=== PATIENT | female | born 1980 | race American Indian/Alaskan Native ===

== ENCOUNTER 2019-12-05 09:21 | Inpatient (IN) | payer MEDICAID, OTHER ==
--- NOTE | 2019-11-27 11:22 | History and Physical Report ---
History of Present Illness Date of examination: 11/27/19 Chief complaint: repeat c/s History of present illness: 39 yo at 39w1d c/b AMA, GDM, hx preE on asprin, LGA fetus per APA, prior c/s x 3 presenting for repeat c/s. No labor complaints or PIH symptoms. +FM. Past History Past Medical History: other (gestational diabetes) Past Surgical History: section (x3) Family/Genetic History: other (son with epilepsy) Social history: no significant social history - Obstetrical History : 8 Para: 4 Hx # Term Pregnancies: 4 Spontaneous Abortions: 3 Number of Living Children: 4 Medications and Allergies Allergies Allergy/AdvReac Type Severity Reaction Status Date / Time sea food AdvReac Anaphylaxis Uncoded 11/06/12 18:55 Home Medications Medication Instructions Recorded Confirmed Last Taken Type Ferrous Sulfate [Feosol 325 MG tab] 325 mg PO BID #60 tablet 11/09/12 Unknown Rx HYDROcodone/APAP 5-325 [Bartlett 1 each PO Q6HR PRN #30 tablet 11/09/12 Unknown Rx 5/325 mg] Ibuprofen [Motrin] 600 mg PO Q8H PRN #30 tablet 11/09/12 Unknown Rx Hug296/Iron Fum/Folic/Docusate 1 each PO QDAY #30 tablet 11/09/12 Unknown Rx [ 19 Tablet] Review of Systems All systems: negative (expect HPI) - Physical Exam Abdomen: Positive: normal appearance, normal bowel sounds - Obstetrical FHR: category 1 Uterine Contraction Monitor Mode: External Uterine Contraction Pattern: Absent Results All other labs normal. Assessment and Plan - Patient Problems (1) S/P Status: Acute Plan to address problem: --To OR for repeat c section --Desires future fertility --Questions solicited and answered --Consented in the chart (2) Gestational diabetes Status: Acute Plan to address problem: --Diet controlled --Monitor CBGs per protocol (3) History of pre-eclampsia in prior , currently Status: Acute Plan to address problem: --Monitor for s/sx of pre-E, management as indicated --On aspirin during , d/c'd 24H prior to surgical management
[2019-12-05] MEDS ORDERED: BICITRA ORAL LIQD 30ML PO SCH (10:00)
[2019-12-05] MEDS ORDERED: FAMOTIDINE 20 MG/2 ML INJ IV SCH (10:00)
[2019-12-05] MEDS ORDERED: METOCLOPRAMIDE 10 MG/2 ML INJ IV SCH (10:00)
[2019-12-05] MEDS ORDERED: OXYTOCIN DRIP 30 UNITS/500 ML BAG IV SCH ×2 (10:00→14:00)
[2019-12-05] MEDS: LACTATED RINGERS 1,000 ML IV SCH ×2 (10:25→11:30)
[2019-12-05 10:35] LABS: Basophils % (Auto) 0.2 % (0.0-1.8); Eosinophils # (Auto) 0.1 K/mm3 (0.0-0.4); Eosinophils % (Auto) 0.6 % (0.0-4.3); Hematocrit 37.4 % (30.3-42.9); Hemoglobin 12.2 gm/dl (10.1-14.3); Lymphocytes % (Auto) 20.1 % (13.4-35.0); Mean Corpuscular HGB Conc 33 % (30-34); Mean Corpuscular Volume 87 fl (79-97); Monocytes # (Auto) 0.7 K/mm3 (0.0-0.8); Monocytes % (Auto) 7.3 % (0.0-7.3); Platelet Count 211 K/mm3 (140-440); Red Blood Count 4.31 M/mm3 (3.65-5.03); Red Cell Distribution Width 14.3 % (13.2-15.2)
[2019-12-05] MEDS ORDERED: ceFAZolin/Water 2 GM/20 ML 2 GM/20 ML SYRINGE IV ONE (11:21)
--- NOTE | 2019-12-05 11:39 | Event Note ---
Date: 12/05/19 Patient initially declining blood products during initial c section consent but did not express with products she would accept. When attempting to find list of products, patient express that she would accept blood products to provider obtaining blood consent in emergency situations. Regardless of consent, for due diligence, found list of all available blood products at hospital. red blood cells, agrees cryoprecipitate, agrees platelets, agrees plasma, agrees cell saver, agrees Question and answered witnessed by KHADIJAH Jalloh. tube man Searra also aware. All surgery team aware. In addition, patient declines COVID testing. No reason given. Will presume at PUI. --Partner not allowed to leave and come back to hospital --If in NICU, they are unable to visit --Patient/partner are considered PUIs during hospitalization and anyone providing service will require full contact isolation gear with N95 mask per COVID PUI protocols --Will baby photos are allowed during surgery given risk of contamination/infection, including fomites and respiratory spread. --Patient and partner expressed understanding and continue to decline COVID testing. All involved individuals in patient care made aware.
--- NOTE | 2019-12-05 11:42 | Anesthesia Consultation ---
Anesthesia Consult and Med Hx Date of service: 12/05/19 - Airway Anesthetic Teeth Evaluation: Good ROM Head & Neck: Adequate Mental/Hyoid Distance: Adequate Mallampati Class: Class II Intubation Access Assessment: Probably Good - Pulmonary Exam CTA: Yes - Cardiac Exam Cardiac Exam: RRR - Pre-Operative Health Status ASA Pre-Surgery Classification: ASA3 Proposed Anesthetic Plan: Spinal - Pulmonary Hx Asthma: No COPD: No Hx Pneumonia: No - Cardiovascular System Hx Hypertension: Yes - Central Nervous System Hx Seizures: No Hx Psychiatric Problems: No - Endocrine Hx Renal Disease: No Hx End Stage Renal Disease: No Hx Non-Insulin Dependent Diabetes: Yes Hx Hypothyroidism: No Hx Hyperthyroidism: No - Hematic Hx Anemia: No Hx Sickle Cell Disease: No - Other Systems Hx Alcohol Use: Yes (occas)
--- NOTE | 2019-12-05 11:42 | Anesthesia Day of Surgery ---
Anesthesia Day of Surgery - Day of Surgery Patient Examined: Yes Patient H&P Reviewed: Yes Patient is NPO: Yes
[2019-12-05] MEDS ORDERED: ceFAZolin/STERILE WATER 2 GM/20 ML SYRINGE IV ONE (11:52)
[2019-12-05] MEDS ORDERED: BUPIVACAINE/PF (0.5%) 5 MG/1 ML 30 ML VIAL INFILTRATI ONE (11:55)
[2019-12-05] MEDS ORDERED: ONDANSETRON 4 MG/2 ML INJ ONE (11:55)
[2019-12-05] MEDS ORDERED: KETOROLAC 30 MG/1 ML INJ ONE (11:55)
[2019-12-05] MEDS ORDERED: WATER FOR IRRIG STERILE 1,500 ML BOTTLE IR ONE (12:28)
[2019-12-05] MEDS ORDERED: SODIUM CHLORIDE 0.9% IRR 1,500 ML BOTTLE IR ONE (12:28)
[2019-12-05] MEDS ORDERED: PHENYLEPHRINE/NS 1,000 MCG/10 ML SYRINGE (OR USE) IV ONE ×2 (12:37→12:57)
[2019-12-05] MEDS ORDERED: LACTATED RINGERS 1,000 ML ONE (12:37)
[2019-12-05] MEDS ORDERED: MAGNESIUM HYDROXIDE (MOM) ORAL LIQD UDC PO PRN (13:27)
[2019-12-05] MEDS ORDERED: MORPHINE 4 MG/1 ML INJ IV PRN (13:27)
[2019-12-05] MEDS ORDERED: PROMETHAZINE 25 MG RECT SUPP PR PRN (13:27)
[2019-12-05] MEDS ORDERED: SENNOSIDES 8.6 MG TAB PO PRN (13:27)
[2019-12-05] MEDS ORDERED: LANOLIN/ZINC/DIMETHICONE (LANSINOH) 7 GM TP PRN (13:27)
[2019-12-05] MEDS ORDERED: ONDANSETRON 4 MG/2 ML INJ IV PRN (13:27)
[2019-12-05] MEDS ORDERED: NALOXONE 0.4 MG/1 ML INJ IV PRN (13:27)
[2019-12-05] MEDS ORDERED: HYDROCORTISONE 25 MG RECTAL SUPP PR PRN (13:27)
[2019-12-05] MEDS ORDERED: WITCH HAZEL/ GLYCERIN PAD TP PRN (13:27)
--- NOTE | 2019-12-05 13:27 | Procedure Note ---
OB Delivery Note - Delivery Date of Delivery: 12/05/19 Surgeon: RENATE CHASE JR Estimated blood loss: 1000cc - Section Preop diagnosis: repeat Postop diagnosis: same section procedure: section, repeat low transverse Disposition: PACU Complications: none Narrative: Indication: 39-year-old -0-3-4 at 39 weeks 1 day complicated by gestational hypertension, gestational diabetes on no medications, with a history of prior C- section presenting for scheduled repeat . Findings: Normal uterus, tubes and ovaries. Clear fluid. No nuchal cord. Delivery of male infant at 1236 Weight 4377 grams Height 21.5 inches Apgars 8 9 EBL 1 L Intraoperative IV fluids 1050 cc Urine output 20 cc Procedure: Patient was taken to the operating room prepped and draped in the usual sterile fashion. Pfannenstiel skin incision was made and carried down to the underlying fascia. Fascia was incised and the incision was distended bilaterally. Rectus fascia was dissected off the rectus muscle superiorly and inferiorly. Peritoneum was identified and entered. Peritoneal incision extended superiorly and inferiorly. The bladder was visualized. The bladder blade was placed. Uterine hysterotomy incision was made and extended bilaterally. The baby was delivered in the typical vertex fashion. Baby was bulb suction at delivery. The cord was cut and clamped and handed off to the team. The placenta was delivered spontaneously. The uterus was exteriorized and cleared of all clots and debris. Uterine incision was closed with a 0 Vicryl in a running locked fashion. [id number] sutures were used to create hemostasis followed by Surgicel on the uterine repair. Good hemostasis was noted. The urine was noted to be clear. Uterus, tubes, and ovaries were returned to the abdominal cavity. Bilateral gutters were cleared and the abdomen and pelvis were irrigated. Good hemostasis noted. The rectus muscles reapproximated with 2-0 Vicryl. Attention was directed towards the rectus fascia which was reapproximated with 0 PDS in a running fashion. The subcutaneous tissue was irrigated and reapproximated with 2-0 Vicryl in a running fashion. Skin was closed with a 4-0 Vicryl in a subcuticular fashion. The procedure was completed and the patient tolerated the procedure well. All instruments and lap counts were correct x2. - Infant A at 1 minute: 8 at 5 minutes: 9 Infant Gender: Male
--- NOTE | 2019-12-05 16:43 | Post Anesthesia Evaluation ---
- Post Anesthesia Evaluation Patient Participated: Yes Airway Patent: Yes Stable Respiratory Function: Yes Nausea/Vomiting: No Temp > 96.8F: Yes Pain Manageable: Yes Adequeate Hydration: Yes Anesthesia Complications: No Block Receding Appropriately: Yes
--- NOTE | 2019-12-05 16:44 | Progress Note ---
Regional Anesthesia Block - Regional Anesthesia Block Start Time: 13:40 Stop Time: 13:45 Performed By:: ARIE WEN Procedure: U/S guided bilateral tap block performed for post-operative pain requested by Dr. Smiley. H&P & labs reviewed. Procedure explained, questions answered, consent obtained. Patient in the supine position with ekg, blood pressure cuff and pulse ox on and working in PACU. Timeout performed immediately before start of procedure. Probe placed in the mid-axillary line and the external oblique, internal oblique, and transverse abdominus muscles identified. Skin was cleansed with 0.5% Chlorahexadine and allowed to dry. A 4" 20 G Espinoza echogenic needle was advanced in plane until the tip was in the fascial plane between the internal oblique and the transverse abdominus. After negative aspiration 35 ml/side of [30 ml 0.5% Bupivacaine], [50 mcg dexmedetomidine], [8 mg dexamethasone], and [40 ml sterile saline] was injected in 5 ml increments with negative aspiration in between. Patient tolerated procedure well. Kaitlyn YOST
[2019-12-05] MEDS: KETOROLAC 30 MG/1 ML INJ IV SCH (17:53)
[2019-12-06] MEDS: KETOROLAC 30 MG/1 ML INJ IV SCH (00:56)
[2019-12-06 01:28] LABS: Hematocrit 31.1 % (30.3-42.9); Hemoglobin 9.9 gm/dl (10.1-14.3)
[2019-12-06] MEDS: oxyCODONE /ACETAMINOPHEN 5-325MG TAB PO PRN ×2 (03:45→17:08)
[2019-12-06] MEDS ORDERED: LACTATED RINGERS 250 ML IV ONE (10:00)
--- NOTE | 2019-12-06 10:12 | Progress Note ---
Assessment and Plan A: /postop day 1 S/P repeat low transverse section. Anemia. P: Supplement with iron. Encouraged ambulation. Continue current management. Subjective - Subjective Date of service: 12/06/19 Principal diagnosis: day 1 S/P repeat LTCS Patient reports: appetite normal, voiding normally, pain well controlled, flatus, ambulating normally, no dizzy ambulation, no nauseated : doing well Objective - Vital Signs Latest vital signs: Vital Signs Temp Pulse Resp BP BP Pulse Ox 12/06/19 07:19 98.3 F 68 18 113/58 95 12/06/19 06:21 98.4 F 74 20 106/61 97 12/06/19 03:45 20 12/06/19 02:17 97.9 F 77 18 113/69 95 12/05/19 22:30 98.6 F 82 20 115/67 96 12/05/19 18:33 97.2 F L 71 18 100/66 12/05/19 14:30 97.5 F L 73 14 97/67 93 12/05/19 14:15 75 14 112/72 92 12/05/19 14:00 97.5 F L 70 15 98/63 99 12/05/19 13:45 70 16 96/57 95 12/05/19 13:40 74 19 90/46 96 12/05/19 13:35 97.5 F L 81 14 99/39 98 Intake and Output 12/05/19 12/06/19 12/06/19 23:59 07:59 15:59 Intake Total 480 Output Total 600 600 Balance -600 -120 Intake: Oral 240 Intake, Free Water 240 Output: Urine 600 600 Indwelling Catheter 600 Void 600 Other: Total, Intake Amount 240 Total, Output Amount 600 600 # Voids Void 1 - Exam Cardiovascular: Present: Regular rate, No murmurs Lungs: Present: Clear to auscultation Abdomen: Present: normal appearance, soft, normal bowel sounds. Absent: distention, tenderness, guarding, rigidity Uterus: Present: normal, firm, fundal height below umbilicus. Absent: bogginess, tenderness Extremities: Present: normal. Absent: tenderness, edema Incision: Present: normal, dry, dressed - Labs Labs: Abnormal lab results 12/05/19 12/05/19 12/05/19 Range/Units 10:15 19:29 22:56 Hgb (10.1-14.3) gm/dl Seg Neutrophils % 71.8 H (40.0-70.0) % POC Glucose 126 H 133 H (70-105) mg/dL 12/06/19 Range/Units 01:14 Hgb 9.9 L (10.1-14.3) gm/dl Seg Neutrophils % (40.0-70.0) % POC Glucose (70-105) mg/dL
[2019-12-06] MEDS: SIMETHICONE 80 MG CHEW TAB PO PRN (10:21)
[2019-12-06] MEDS: IBUPROFEN 800 MG TAB PO PRN (10:21)
[2019-12-06 19:58] LABS: Hematocrit 29.4 % (30.3-42.9); Hemoglobin 9.5 gm/dl (10.1-14.3)
[2019-12-07] MEDS: IBUPROFEN 800 MG TAB PO PRN ×2 (00:38→10:10)
[2019-12-07] MEDS: oxyCODONE /ACETAMINOPHEN 5-325MG TAB PO PRN (02:31)
[2019-12-07] MEDS: FERROUS SULFATE 325 MG TAB PO SCH ×2 (05:03→10:09)
[2019-12-07] MEDS: SIMETHICONE 80 MG CHEW TAB PO PRN (10:09)
--- NOTE | 2019-12-07 14:03 | Progress Note ---
Assessment and Plan A: /postop day 2 S/P repeat LTCS. Anemia. P: MD Villarreal patient to be discharged home today. Discharge patient home. Discussed with patient /postop discharge instructions and warning signs. Advised patient to continue taking her vitamin and iron supplement at home. Advised patient to avoid intercourse, lifting, housework, driving, stair climbing. Care of incision discussed with patient. Warning signs for depression discussed with patient. Advised patient to follow up at [facility] in 1 week for incision check. Patient voiced understanding of all instructions. Subjective - Subjective Date of service: 12/07/19 Principal diagnosis: day 2 S/P repeat LTCS Interval history: Patient requests to go home today. Patient reports: appetite normal, voiding normally, pain well controlled, flatus, ambulating normally, no dizzy ambulation, no nauseated : doing well, bottle feeding Objective - Vital Signs Latest vital signs: Vital Signs Temp Pulse Resp BP BP Pulse Ox 12/07/19 08:00 97.8 F 74 18 119/72 99 12/07/19 02:31 20 12/07/19 00:38 18 12/06/19 23:07 98.7 F 84 22 122/75 98 12/06/19 17:03 98.5 F 95 H 19 120/71 98 Intake and Output 12/06/19 12/07/19 12/07/19 23:59 07:59 15:59 Intake Total 480 240 Balance 480 240 Intake: Intake, Free Water 480 240 Other: # Voids Void 2 1 - Exam Cardiovascular: Present: Regular rate, No murmurs Lungs: Present: Clear to auscultation Abdomen: Present: normal appearance, soft, normal bowel sounds. Absent: distention, tenderness, guarding, rigidity Uterus: Present: normal, firm, fundal height below umbilicus. Absent: bogginess, tenderness Extremities: Present: normal. Absent: tenderness, edema Incision: Present: normal, dry, intact - Labs Labs: Abnormal lab results 12/06/19 12/06/19 12/07/19 Range/Units 19:32 22:22 02:35 Hgb 9.5 L (10.1-14.3) gm/dl Hct 29.4 L (30.3-42.9) % POC Glucose 184 H 107 H (70-105) mg/dL
--- NOTE | 2019-12-07 14:05 | Discharge Summary ---
Providers - Providers Date of Admission: 12/05/19 09:21 Date of discharge: 12/07/19 Attending physician: RENATE CHASE JR, MD Primary care physician: RENATE CHASE JR, MD Hospitalization Reason for admission: section Delivery: Procedure: repeat low transverse Incision: normal, dry, intact Other procedures: none complications: none Discharge diagnosis: IUP at term delivered baby: male Pertinent studies: Labs Hospital course: Stable hospital course Condition at discharge: Good Disposition: DC-01 TO HOME OR SELFCARE Plan - Discharge Medications Prescriptions: Ibuprofen [Motrin 800 MG tab] 800 mg PO Q6H PRN #30 tablet PRN Reason: Pain, Mild (1-3) oxyCODONE /ACETAMINOPHEN [Percocet 5/325 mg] 1 tab PO Q6H PRN #30 tablet PRN Reason: Pain, Moderate (4-6) - Provider Discharge Summary Activity: routine, no sex for 6 weeks, no heavy lifting 4 weeks, no strenuous exercise Diet: routine Instructions: routine Additional instructions: Continue to take your vitamin and iron supplement at home. Follow up at [facility] in 1 week for incision check. Call your doctor immediately for: * Fever > 100.5 * Heavy vaginal bleeding ( >1 pad per hour) * Severe persistent headache * Shortness of breath * Reddened, hot, painful area to leg or breast * Drainage or odor from incision. * Keep incision clean and dry at all times and follow doctor's instructions regarding bathing/showering - Follow up plan Follow up: RENATE CHASE JR, MD [Primary Care Provider] - 7 Days
[2019-12-07 18:28] VITALS: BP 135/82
== END 2019-12-07 17:10 | disposition home or self-care (01) | DRG 765 ==
LOC: APU 09:21 → OB 12:06 → APU 12:08 → OB 17:08
PROVIDERS: ADMIT Obstetrics & Gynecology; ATTEND Obstetrics & Gynecology
PROC: 10D00Z1 Extraction of Products of Conception, Low, Open Approach (ICD-10-PCS; principal; 2019-12-05)
DX: O24.429 Gestational diabetes mellitus in childbirth, unspecified control (principal); D62 Acute posthemorrhagic anemia; O13.4 Gestational [pregnancy-induced] hypertension without significant proteinuria, complicating childbirth; Z3A.39 39 weeks gestation of pregnancy; Z37.0 Single live birth; O34.211 Maternal care for low transverse scar from previous cesarean delivery; O90.81 Anemia of the puerperium
CPT/HCPCS: 36415; 82962; 85014; 85018; 85025; 86850; 86900; 86901; G0378; J0690; J1885; J2370; J2405; J2765; J7120

== ENCOUNTER 2021-01-04 15:13 | Outpatient (CLI) | payer OTHER ==
[2021-01-04] MEDS ORDERED: LACTATED RINGERS 1,000 ML IV ONE ×2 (17:15→21:00)
[2021-01-04] MEDS ORDERED: LACTATED RINGERS 1,000 ML ONE (17:20)
[2021-01-04 17:55] VITALS: BP 120/72
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
[2021-01-04] MEDS ORDERED: TERBUTALINE 1 MG/1 ML INJ SUB-Q PRN (20:00)
== END 2021-01-04 22:03 | disposition home or self-care (01) ==
LOC: TRG 15:13 → APU 15:14 → TRG 22:03
PROVIDERS: ATTEND Obstetrics & Gynecology
DX: O09.523 Supervision of elderly multigravida, third trimester (principal); O26.893 Other specified pregnancy related conditions, third trimester; R10.30 Lower abdominal pain, unspecified; V89.2XXA Person injured in unspecified motor-vehicle accident, traffic, initial encounter; Z3A.30 30 weeks gestation of pregnancy; Y93.89 Activity, other specified; Y92.89 Other specified places as the place of occurrence of the external cause; Y99.8 Other external cause status
CPT/HCPCS: 59025; 76815; 96360; 96361; 96372; J3105; J7120; J3490